=== PATIENT | female | born 1965 | race Caucasian/White ===

== ENCOUNTER 2017-07-09 22:05 | Emergency (ER) | payer OTHER ==
[2017-07-09] MEDS: KETOROLAC 30 MG INJ IM (23:05)
== END 2017-07-10 00:39 | disposition home or self-care (01) ==
LOC: FTE 07-10 00:39
DX: S20.229A Contusion of unspecified back wall of thorax, initial encounter (principal); R07.9 Chest pain, unspecified; S20.20XA Contusion of thorax, unspecified, initial encounter; V89.2XXA Person injured in unspecified motor-vehicle accident, traffic, initial encounter; Z87.891 Personal history of nicotine dependence
CPT/HCPCS: 71046; 72100; 96372; 99284-25